=== PATIENT | female | born 1970 | race Caucasian/White ===

== ENCOUNTER 2017-05-12 05:45 | Day surgery (SDC) | payer MEDICARE, OTHER ==
[~2017-05-12] VITALS: Ht 160 cm; Wt 70.8 kg
[~2017-05-12 05:45] MED LIST: ADVIL200 M1 PO; ALBUTEROL SULF8.5 GM INH; CHANTIX1 MG PO; CLONAZEPAM1 MG PO; CLONAZEPAM2 MG PO; CYCLOBENZAPRINE10 MG PO; CYMBALTA60 MG PO; CYPROHEPTADINE H4 MG PO; DEPO-ESTRADIO5 MG/ML IM; HYDROCODON-ACE1 EA11 PO; IBUPROFEN400 MG PO; IBUPROFEN800 MG PO; INDERAL LA120 MG PO; INDERAL LA60 MG PO; MECLIZINE HCL12.5 MG PO; NALBUPHINE; NORCO 5-325 TA1 EACH PO; NORCO 7.5-3251 EACH PO; OXYBUTYNIN CHLOR5 MG; PHENERGAN50 MG RC; PROMETHAZINE HC25 M1 PO; SILVADENE20 GM TOP; SIMVASTATIN20 MG PO; TAMSULOSIN HCL0.4 MG PO; TRAZODONE HCL100 MG PO; VALIUM5 MG PO; VENLAFAXINE H37.5 MG; VENLAFAXINE H37.5 MG PO; VESICARE10 MG PO; VITAMIN D250000 UNIT PO; ZOFRAN ODT4 MG PO
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
== END 2017-05-12 10:25 | disposition home or self-care (01) ==
LOC: OPS 05:45 → DS 05:45 → OPS 06:45 → DS 06:45 → OPS 10:25
PROVIDERS: Urology
PROC: 3E0K8GC Introduction of Other Therapeutic Substance into Genitourinary Tract, Via Natural or Artificial Opening Endoscopic (ICD-10-PCS; principal; 2017-05-12 06:45)
DX: N32.81 Overactive bladder (principal); F32.9 Major depressive disorder, single episode, unspecified; G43.909 Migraine, unspecified, not intractable, without status migrainosus; F17.210 Nicotine dependence, cigarettes, uncomplicated; Z90.710 Acquired absence of both cervix and uterus; Z87.820 Personal history of traumatic brain injury; Z86.718 Personal history of other venous thrombosis and embolism; Z88.2 Allergy status to sulfonamides; Z88.5 Allergy status to narcotic agent; Z88.8 Allergy status to other drugs, medicaments and biological substances; Z98.890 Other specified postprocedural states; Z79.899 Other long term (current) drug therapy
CPT/HCPCS: 00910; J0696; J1100; J2405; J2704; J2765; J3010; J7120

== ENCOUNTER 2017-06-01 13:12 | Emergency (ER) | payer MEDICARE, OTHER ==
[~2017-06-01] VITALS: Ht 160 cm; Wt 70.8 kg
[2017-06-01] MEDS ORDERED: PROPRANOLOL HCL60 MG PO (13:25)
[2017-06-01] MEDS ORDERED: CLONAZEPAM0.5 MG PO (13:25)
[2017-06-01] MEDS ORDERED: NAPROXEN500 MG PO (13:25)
[2017-06-01] MEDS ORDERED: VENLAFAXINE HCL75 MG PO (13:25)
[2017-06-01] MEDS ORDERED: NALBUPHINE IM (13:32)
[2017-06-01] MEDS ORDERED: PROMETHAZINE HC25 M1 PO (15:11)
[2017-06-01] MEDS ORDERED: NORCO 7.5-3251 EACH PO (15:11)
--- NOTE | 2017-06-01 20:26 | EKG ---
[facility] [address] [facility] [place] [address] Signed Normal sinus rhythm Normal ECG No previous ECGs available Confirmed by JUANY FISCHER MD ([id number]) on 06/01/2017 8:26:43 PM Electronically Signed By: JUANY FISCHER MD 06/01/172025 PATIENT NAME: EMMA WEINER Electrocardiogram DATE OF : 66 PHYSICIAN: JUANY FISCHER MD REPORT #: [id number] REPORT IS CONFIDENTIAL AND NOT TO BE RELEASED WITHOUT AUTHORIZATION
== END 2017-06-01 15:45 | disposition home or self-care (01) ==
LOC: ED 13:12
DX: R07.89 Other chest pain (principal); E78.00 Pure hypercholesterolemia, unspecified; Z91.013 Allergy to seafood; Z88.2 Allergy status to sulfonamides; Z88.8 Allergy status to other drugs, medicaments and biological substances; F17.200 Nicotine dependence, unspecified, uncomplicated; Z79.899 Other long term (current) drug therapy; Z88.1 Allergy status to other antibiotic agents; Z88.6 Allergy status to analgesic agent; Z90.710 Acquired absence of both cervix and uterus; Z90.49 Acquired absence of other specified parts of digestive tract; Z79.891 Long term (current) use of opiate analgesic; Z98.890 Other specified postprocedural states
CPT/HCPCS: 71020; 80053; 84484; 85025; 93005; 93010; 96374; 99284; J2550

== ENCOUNTER 2017-06-20 15:59 | Emergency (ER) | payer MEDICARE, OTHER ==
[~2017-06-20] VITALS: Ht 160 cm; Wt 70.8 kg
[~2017-06-20 15:59] MED LIST changes: +CLONAZEPAM0.5 MG PO; +NALBUPHINE IM; +NAPROXEN500 MG PO; +PROPRANOLOL HCL60 MG PO; +VENLAFAXINE HCL75 MG PO
== END 2017-06-20 17:13 | disposition home or self-care (01) ==
LOC: ED 15:59
DX: G43.909 Migraine, unspecified, not intractable, without status migrainosus (principal); Z88.2 Allergy status to sulfonamides; Z91.013 Allergy to seafood; Z88.8 Allergy status to other drugs, medicaments and biological substances; F17.200 Nicotine dependence, unspecified, uncomplicated; E78.00 Pure hypercholesterolemia, unspecified; Z88.1 Allergy status to other antibiotic agents; Z79.899 Other long term (current) drug therapy
CPT/HCPCS: 96372; 99282; J2300; J2550

== ENCOUNTER 2017-08-25 08:40 | Day surgery (SDC) | payer MEDICARE, OTHER ==
[~2017-08-25] VITALS: Ht 160 cm; Wt 70.8 kg
--- NOTE | 2017-08-25 09:57 | NUR ---
U/S IV ACCESS NOTE. AFTER MULTIPLE ATTEMPTS BY OTHER RN'S U/S WAS USED TO EXAMINE ARMS. THE LEFT BASILIC VEIN WAS ACCESSED BUT THE CATHETER WOULD NOT ADVANCE UP. A SECOND ATTEMPT WAS MADE ON A PROXIMAL SECTION OF THE LEFT BASILIC WITH THE SAME RESULTS. ATTENTION WAS THEN TURNED TO THE LEFT BRACHIAL VEIN WHICH WAS ACCESSED ON THE FIRST ATTEMPT AND THE 18G 2.25 IN CATHETER ADVANCED EASILY UP THE LEFT BRACHIAL VEIN. THIS VEIN APPEARED TO BE LARGER THAN 7 FR PER SITE RITProsper U/S. THE PT TOLERATED THIS WELL. CHLORHEXADINE AND HANDWASHING WERE USED PRIOR TO ALL ATTEMPTS AND A WINDOW DRESSING WAS SECURED WITH TAPE AFTER THE STERILE U/S GELL WAS CLEANED OFF.
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
--- NOTE | 2017-08-25 11:15 | NUR ---
08/25/17 1115 Jackie Alvarez 1107 PT ARRIVED IN PACU VERY SLEEPY WITH ORAL AIRWAY IN PLACE. RN HOLDING AIRWAY.
--- NOTE | 2017-08-25 12:09 | NUR ---
PT IS BACK TO DS FROM PACU. NO C/O'S PAIN OR NAUSEA. DRINKING WATER WITHOUT ISSUE. CALL LIGHT WITHIN REACH. NO OTHER C/O'S AT THIS TIME. WILL REASSESS WITHIN THE HOUR.
--- NOTE | 2017-08-25 12:23 | NUR ---
ALISSA 1215: PT HELPED UP OOB TO THE BATHROOM WITH STANDBY ASSIST. SHE REQUESTS A GRILLED CHEESE SANDWICH WITH TOMATO SOUP.
[2017-08-25] MEDS ORDERED: CIPRO500 MG PO (12:29)
[2017-08-25] MEDS ORDERED: NORCO 7.5-3251 EACH PO (12:29)
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
== END 2017-08-25 13:10 | disposition home or self-care (01) ==
LOC: DS 08:40
PROVIDERS: Urology
PROC: 3E0K8GC Introduction of Other Therapeutic Substance into Genitourinary Tract, Via Natural or Artificial Opening Endoscopic (ICD-10-PCS; principal; 2017-08-25 10:30)
DX: N32.81 Overactive bladder (principal); N31.9 Neuromuscular dysfunction of bladder, unspecified; G43.909 Migraine, unspecified, not intractable, without status migrainosus; J30.2 Other seasonal allergic rhinitis; F32.9 Major depressive disorder, single episode, unspecified; F17.210 Nicotine dependence, cigarettes, uncomplicated; Z90.710 Acquired absence of both cervix and uterus; Z79.899 Other long term (current) drug therapy; Z86.718 Personal history of other venous thrombosis and embolism; Z98.890 Other specified postprocedural states; Z88.1 Allergy status to other antibiotic agents; Z88.2 Allergy status to sulfonamides; Z88.8 Allergy status to other drugs, medicaments and biological substances
CPT/HCPCS: 00910; 84295; J0696; J1100; J1885; J2250; J2405; J2704; J2765; J3010; J7030; J7120

== ENCOUNTER 2017-09-07 13:08 | Emergency (ER) | payer MEDICARE, OTHER ==
[~2017-09-07] VITALS: Ht 160 cm; Wt 70.8 kg
[~2017-09-07 13:08] MED LIST changes: +CIPRO500 MG PO
== END 2017-09-07 19:13 | disposition home or self-care (01) ==
LOC: ED 13:08
DX: G43.909 Migraine, unspecified, not intractable, without status migrainosus (principal); F17.200 Nicotine dependence, unspecified, uncomplicated; Z91.013 Allergy to seafood; Z88.2 Allergy status to sulfonamides; Z88.8 Allergy status to other drugs, medicaments and biological substances; Z88.1 Allergy status to other antibiotic agents; Z88.6 Allergy status to analgesic agent; Z79.899 Other long term (current) drug therapy
CPT/HCPCS: 96372; 99282; J2300; J2550

== ENCOUNTER 2017-11-17 06:55 | Day surgery (SDC) | payer MEDICARE, OTHER ==
[~2017-11-17] VITALS: Ht 160 cm; Wt 70.8 kg
--- NOTE | 2017-11-17 09:44 | NUR ---
scopalamine patch pt instructed to wash hands if she touches patch.
--- NOTE | 2017-11-17 09:57 | NUR ---
PT RESTING IN BED, ALERT AND ORIENTED. SHE SEEMED AT EASE WITH SURGERY TODAY, AND HAD FEW QUESTIONS. PT MENTIONED HER PLATT CAME AND PRAYED FOR HER AND IT SEEMED TO SET A VERY POSITIVE TONE FOR TODAY. WILL FOLLOW NEEDED
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
== END 2017-11-17 11:39 | disposition home or self-care (01) ==
LOC: OPS 06:55 → DS 06:55 → OPS 08:15 → DS 08:15 → OPS 11:39
PROVIDERS: Urology
PROC: 3E0K8GC Introduction of Other Therapeutic Substance into Genitourinary Tract, Via Natural or Artificial Opening Endoscopic (ICD-10-PCS; principal; 2017-11-17 08:15)
DX: N32.81 Overactive bladder (principal); S39.93XA Unspecified injury of pelvis, initial encounter; N31.9 Neuromuscular dysfunction of bladder, unspecified; F32.9 Major depressive disorder, single episode, unspecified; J30.2 Other seasonal allergic rhinitis; F17.210 Nicotine dependence, cigarettes, uncomplicated; Z88.2 Allergy status to sulfonamides; Z79.899 Other long term (current) drug therapy; Z87.820 Personal history of traumatic brain injury; Z88.1 Allergy status to other antibiotic agents; Z88.8 Allergy status to other drugs, medicaments and biological substances
CPT/HCPCS: 00910; J0585; J0690; J0696; J1100; J2405; J2704; J7120

== ENCOUNTER 2018-04-20 06:50 | Day surgery (SDC) | payer MEDICARE, OTHER ==
[~2018-04-20] VITALS: Ht 160 cm; Wt 71.2 kg
[2018-04-20] MEDS ORDERED: PERCOCET 5-3251 EACH PO (10:08)
--- NOTE | 2018-04-20 10:12 | NUR ---
04/20/18 1012 Jackie Alvarez 0959 PT ARRIVED IN PACU WIDE AWAKE TALKING TO STAFF. NO C/O'S. 0950 PT SIPPING ON WATER. 1012 PT TALKING TO BOYFRIEND ON CELL PHONE.
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
== END 2018-04-20 10:25 | disposition home or self-care (01) ==
LOC: OPS 06:50 → DS 06:50 → OPS 08:30
PROVIDERS: Urology
PROC: 3E0K8GC Introduction of Other Therapeutic Substance into Genitourinary Tract, Via Natural or Artificial Opening Endoscopic (ICD-10-PCS; principal; 2018-04-20 08:30)
DX: N32.81 Overactive bladder (principal); F32.9 Major depressive disorder, single episode, unspecified; G43.909 Migraine, unspecified, not intractable, without status migrainosus; F17.210 Nicotine dependence, cigarettes, uncomplicated; Z88.2 Allergy status to sulfonamides; Z88.1 Allergy status to other antibiotic agents; Z88.8 Allergy status to other drugs, medicaments and biological substances; Z79.899 Other long term (current) drug therapy; Z87.820 Personal history of traumatic brain injury
CPT/HCPCS: 81001; J0696; J1100; J2250; J2405; J3010; J7120

== ENCOUNTER 2018-11-16 08:50 | Day surgery (SDC) | payer MEDICARE, OTHER ==
--- NOTE | 2018-11-13 15:43 | NUR ---
SPOKE WITH DR CALDERA ABOUT POSITIVE URINE ANALYSIS WITH PENDING CULTURE. TELEPHONE ORDER FOR CIPRO 500MG BID FOR 7 DAYS CALLED TO [facility]. PATIENT AWARE SHE WILL NEED TO START ABX TODAY IN ORDER TO PROCEED WITH SURGERY ON FRIDAY.
[~2018-11-16] VITALS: Ht 160 cm; Wt 75.3 kg
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
[~2018-11-16 08:50] MED LIST changes: +PERCOCET 5-3251 EACH PO; +SINGULAIR10 MG PO
[2018-11-16] MEDS ORDERED: CIPRO500 MG PO (09:13)
--- NOTE | 2018-11-16 10:51 | NUR ---
11/16/18 1051 Jackie Alvarez 1036 PT ARRIVED IN PACU ASLEEP WITH ORAL AIRWAY IN PLACE. CHIN LIFT DOWN BY RN TO KEEP AIRWAY OPEN. 1044 PT AWAKE. ORAL AIRWAY REMOVED. 1045 PT SITTING UP IN BED TALKING TO STAFF. OXYGEN REMOVED. 1050 SIPPING ON WATER.
== END 2018-11-16 11:10 | disposition home or self-care (01) ==
LOC: OPS 08:50 → DS 08:50 → OPS 10:15 → DS 10:15 → OPS 11:10
PROVIDERS: Urology
PROC: 3E0K8GC Introduction of Other Therapeutic Substance into Genitourinary Tract, Via Natural or Artificial Opening Endoscopic (ICD-10-PCS; principal; 2018-11-16 10:15)
DX: N31.9 Neuromuscular dysfunction of bladder, unspecified (principal); N32.81 Overactive bladder; F17.210 Nicotine dependence, cigarettes, uncomplicated; I10 Essential (primary) hypertension; E78.5 Hyperlipidemia, unspecified; D64.9 Anemia, unspecified; G81.91 Hemiplegia, unspecified affecting right dominant side; G43.909 Migraine, unspecified, not intractable, without status migrainosus; Z86.718 Personal history of other venous thrombosis and embolism; Z79.899 Other long term (current) drug therapy; Z88.2 Allergy status to sulfonamides; Z88.1 Allergy status to other antibiotic agents; Z88.8 Allergy status to other drugs, medicaments and biological substances
CPT/HCPCS: 00910; 81001; 93005; 93010; J0585; J0696; J2250; J2405; J2704; J3010; J7120

== ENCOUNTER 2019-05-03 08:25 | Day surgery (SDC) | payer MEDICARE, OTHER ==
[~2019-05-03] VITALS: Ht 160 cm; Wt 76.7 kg
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
--- NOTE | 2019-05-03 10:21 | NUR ---
05/03/19 1021 Nany Dumont 1009 PT ARRIVED AND IS TRYING TO GET OUT OF BED, PT MOVING ARMS AND RN TRYS TO REORIENTE PT TO PACU. 10L VIA MASK IS PLACE, RESP EVEN AND UNLABORED. PT DENIES PAIN AND NAUSEA. 1012 PT ALSEEP OFF AND ON, O2 REMOVED. PT ENOCURAGED TO DEEP BRAETHE. PT CONTINUES TO DENY PAIN AND NAUSEA. PT AGAIN TRYS TO GET OUT OF BED. PT REOREITNED TO PACU AND PT BACK TO SLEEP. 1020 PT REPORTS BEING THRISTY AND IS AGAIN REORIENTED TO PACU. VSS. PT RESTING IN BED.
--- NOTE | 2019-05-03 10:41 | NUR ---
PT ARRIVES TO DS RM 4 FROM PACU AWAKE WITH EVEN AND UNLABORED RESP. PT SATS ABOVE 94% ON RA, CONT PULSE OXIMETER LEFT IN PLACE. PT DENIES ANY NAUSEA OR PAIN. PT DROWSY WITH NO VERBAL STIMULATION, BEGINS TO LIGHTLY SNORE. CALL LIGHT AT PT LEFT SIDE.
--- NOTE | 2019-05-03 12:06 | NUR ---
[id number]: PT RESTING WITH EYES CLOSED, RESP EVEN AND UNLABORED ON ENTRANCE TO PT ROOM. PT WAKES WITH VERBAL STIMULATION. PT DENIES ANY PAIN OR NAUSEA AND STATES URGE TO VOID. PT SOILS BED AND BEDSIDE COMMODE PROVIDED. BEDDING CHANGED WITH NEW LINENS AND PT GIVEN CLEAN GOWN. PT VOIDS QS INTO COMMODE. WARM BLANKETS AND PUDDING PROVIDED. CAREGIVER, GIBSON IN PT ROOM AT THIS TIME. PT
--- NOTE | 2019-05-03 12:54 | NUR ---
[id number]: PT DRESSES SELF WITH ASSISTANCE FROM CAREGIVER. DC INSTRUCTIONS GIVEN IN PRESENCE OF CAREGIVER AND PT, NO FURTHER QUESTIONS ASKED. PT DC'S VIA WC TO MAIN ENTRANCE OF HOSPITAL WITH CAREGIVER TO HOME.
--- NOTE | 2019-05-03 12:57 | NUR ---
[id number]: PT LEFT CANE IN PT ROOM. CAREGIVER CALLED AND CANE GIVEN TO SWITCH BOARD TO RETURN.
== END 2019-05-03 12:20 | disposition home or self-care (01) ==
LOC: DS 08:25
PROVIDERS: Urology
PROC: 3E0K8GC Introduction of Other Therapeutic Substance into Genitourinary Tract, Via Natural or Artificial Opening Endoscopic (ICD-10-PCS; principal; 2019-05-03 10:30)
DX: N32.81 Overactive bladder (principal); K21.9 Gastro-esophageal reflux disease without esophagitis; G81.91 Hemiplegia, unspecified affecting right dominant side; F32.9 Major depressive disorder, single episode, unspecified; Z87.891 Personal history of nicotine dependence; F12.90 Cannabis use, unspecified, uncomplicated; D64.9 Anemia, unspecified; R42 Dizziness and giddiness; Z88.2 Allergy status to sulfonamides; Z88.6 Allergy status to analgesic agent; Z88.1 Allergy status to other antibiotic agents; Z88.8 Allergy status to other drugs, medicaments and biological substances; Z79.899 Other long term (current) drug therapy
CPT/HCPCS: J0585; J0696; J1100; J1885; J2250; J2405; J2704; J2765; J3010; J7120

== ENCOUNTER 2020-01-24 06:50 | Day surgery (SDC) | payer MEDICARE, OTHER ==
[~2020-01-24] VITALS: Ht 160 cm; Wt 73.5 kg
[~2020-01-24 06:50] MED LIST changes: +24HR ALLERGY REL5 MG PO; +ASPIR 8181 MG PO; +EFFEXOR XR150 MG PO; +METOPROLOL SUCC50 MG PO
--- NOTE | 2020-01-24 09:59 | NUR ---
Visited PT before her proceedure to let her know that we care about our PTs and I would be praying for her. Her Elders had visited her earlier which she appreciated. She is looking forward to having this procedure because it was put off due to Covid. We had a nice visit and she expressed much gratitude for my visit.
--- NOTE | 2020-01-24 11:19 | NUR ---
01/24/20 1119 Bart Pulido REPOSITIONED PT IN BED AND GAVE SIPS OF WATER WITHOUT PROBLEMS. PT CONTINUES TO DENY PAIN OR NAUSEA. ORIENTED TO TIME AND SITUATION
--- NOTE | 2020-01-24 11:27 | NUR ---
PT IS BACK TO FROM PACU. SHE IS AWAKE AND ORIENTED. SHE HAS HER CALL LIGHT WITHIN REACH. WATER ON BEDSIDE TABLE. NO C/O'S PAIN. NO ADDITIONAL NEEDS AT THIS TIME. PT'S RIDE WILL NOT BE HERE UNTIL 1400
--- NOTE | 2020-01-24 12:49 | NUR ---
ENCOURAGED PATIENT TO GET UP AND USE BATHROOM. PATIENT STATED " I DON'T WANT TO, I WOULD LIKE TO SLEEP LONGER" PATIEN REPORTS FEELING COLD, PROVIDED WARM BLANKETS AND MADE PLAN TO LET PATIENT REST A LITTLE LONGER THEN GET UP TO BATHROOM, PATIENT VERBALIZED OKAY. RATES PAIN 0/10 ON PAIN SCALE. NO OTHER NEEDS AT THIS TIME. PROVIDED APPLESAUCE AND CRACKERS.
--- NOTE | 2020-01-24 13:51 | NUR ---
DISCUSSING DISCHARGE EDUCATION WITH PATIENT, WHEN PATIENT ASKS " WHAT ABOUT PERCOCET? I ALWAYS GET PERCOCET SENT HOME WTH ME". PATIENT THEN RATED PAIN 5/10 AND STARTED TO GRIMACE. PATIENT STATED " THE CRAMPING ALWAYS GETS TO BOTHERING ME". ADMINISTERED PAIN MEDICATION PER MAR. PROVIDED CRACKERS, REPOSITIONED PATIENT UP IN BED. CALL TO DR CALDERA TO COMMUNICATE PATIENT REQUEST FOR PERCOCET, LEFT MESSAGE WITH NURSE RALF JONES.
--- NOTE | 2020-01-24 14:00 | NUR ---
PATIENT INCONTINENT IN BED, STOOD UP IN ROOM STATES " I AM GOING TO PEE MYSELF IF I TRY TO WALK TO THE BATHROOM". PROVIDED BSC, PATIENT TRANSFERED WELL STEADY ON FEET. VOIDED [address] CALDERA TO FLOOR TO WRITE SCRIPT FOR PAIN MEDICATION. PROVIDED PATIENT AGAIN WITH DISCHARGE INSTRUCTION, PATIENT VERBALIZED UNDERSTANDING.
--- NOTE | 2020-01-24 14:05 | NUR ---
PATIENT SIGNIFICANT OTHER TO DAY SURGERY, PATIENT READY TO DISCHARGE HOME. PROVIDED WHEELCHAIR RIDE TO FRONT, PATIENT TRANSFERED INTO POV. NO OTHER NEEDS.
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
== END 2020-01-24 14:05 | disposition home or self-care (01) ==
LOC: OPS 06:50 → DS 06:50 → OPS 09:15
PROVIDERS: Urology
PROC: 3E0K8GC Introduction of Other Therapeutic Substance into Genitourinary Tract, Via Natural or Artificial Opening Endoscopic (ICD-10-PCS; principal; 2020-01-24 09:15)
DX: N32.81 Overactive bladder (principal); F17.200 Nicotine dependence, unspecified, uncomplicated; Z79.899 Other long term (current) drug therapy; Z79.82 Long term (current) use of aspirin; Z88.2 Allergy status to sulfonamides; Z88.8 Allergy status to other drugs, medicaments and biological substances; Z88.5 Allergy status to narcotic agent; Z88.1 Allergy status to other antibiotic agents
CPT/HCPCS: 00910; J0585; J0696; J1100; J2001; J2405; J2704; J3010; J7121

== ENCOUNTER 2020-07-03 06:50 | Day surgery (SDC) | payer MEDICARE, OTHER ==
[~2020-07-03] VITALS: Ht 160 cm; Wt 71.4 kg
--- NOTE | ~2020-07-03 | OR ---
[facility] [address] [place], [place] [address] Draft DATE OF OPERATION: 07/03/2020 SURGEON: Phil Caldera MD PREOPERATIVE DIAGNOSES: 1. Severe overactive bladder. 2. Neurogenic bladder. POSTOPERATIVE DIAGNOSES: 1. Severe overactive bladder. 2. Neurogenic bladder. PROCEDURES: Diagnostic cystoscopy with Botox bladder injection of 200 units. ANESTHESIA: General. ESTIMATED BLOOD LOSS: Minimal. COMPLICATIONS: None. SPECIMENS: None. DRAINS: None. 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 Her previous injury has resulted in severe overactive bladder, for which she currently undergoes Botox bladder injection therapy approximately every nine months or so. On her last office visit, she had pointed out that her response to the injection had not been the same as in previous years. She requests at that time a possible increase in her Botox dose and I agreed. She was informed of the risk of the higher risk of urinary retention with higher doses of botulinum toxin, and she has agreed to proceed. PATIENT NAME: KELSI WEINER OPERATIVE REPORT DATE OF : 66 REPORT #: [id number] PHYSICIAN: PHIL CALDERA MD PCP: NO PRIMARY CARE PHYSICIAN REPORT IS CONFIDENTIAL AND NOT TO BE RELEASED WITHOUT AUTHORIZATION [facility] [address] [place], [place] [address] Draft FINDINGS: 1. On cystoscopy, there was no evidence of any suspicious masses, lesions, or stones. Bilateral ureteral orifices are in their normal anatomic location. There is diffuse grade 3-4 bladder wall trabeculation noted. 2. A total of 200 units of botulinum toxin was injected into the patient's bladder, the 30 mL of reconstituted botulinum toxin solution, along with 2 mL of flush thereafter. DESCRIPTION OF PROCEDURE: After informed consent was obtained, the patient was taken back to the operating room. She was transferred from the [facility] to the operating room table, where general anesthesia was induced. She was placed in the dorsal lithotomy position and genitalia were prepped and draped in standard sterile fashion. Using a 30-degree lens on a 22.5-New Zealander introducer, rigid cystoscope was inserted through the urethra into her bladder under direct visualization. Panendoscopic views of bladder were then obtained. Please see above findings. I then advanced the [employer] needle once I was safely within the patient's bladder. The needle was advanced to 3 mm length, and then a total of 30 mL of reconstituted both botulinum toxin was injected into the patient's bladder in 1 mL aliquots, along with 2 mL of flush at the end of the procedure. The patient tolerated the procedure well without any complication. There was no significant bleeding associated with the injections. At the end of the procedure, the patient's bladder was then drained and the cystoscope was removed. Once she was awoken from anesthesia, she was taken to the postanesthesia care unit care unit in stable condition. DISPOSITION: The patient will be discharged to home later today once she awakes from general anesthetic. She will be sent home with Percocet 10/325, dispense #20 as needed for pain, along with Cipro 500 mg p.o. b.i.d. for a total of 5 days. She will be scheduled return to clinic on February 8th with a UA check for her first postoperative evaluation. MD ELSA Hatch/CHARAN /[id number] Copies: PATIENT NAME: REGINEKELSI OPERATIVE REPORT DATE OF : 66 REPORT #: [id number] PHYSICIAN: PHIL CALDERA MD PCP: NO PRIMARY CARE PHYSICIAN REPORT IS CONFIDENTIAL AND NOT TO BE RELEASED WITHOUT AUTHORIZATION [facility] [address] [place] [address] Draft ~ PATIENT NAME: SOLEDAD WEINERTHO BURNETT OPERATIVE REPORT DATE OF : 66 REPORT #: [id number] PHYSICIAN: PHIL CALDERA MD PCP: NO PRIMARY CARE PHYSICIAN REPORT IS CONFIDENTIAL AND NOT TO BE RELEASED WITHOUT AUTHORIZATION
[~2020-07-03 06:50] MED LIST changes: +NAPROXEN375 M1 PO
== END 2020-07-03 11:40 | disposition home or self-care (01) ==
LOC: OPS 06:50 → DS 06:50 → OPS 09:00
PROVIDERS: ATTEND Urology
PROC: 3E0K8GC Introduction of Other Therapeutic Substance into Genitourinary Tract, Via Natural or Artificial Opening Endoscopic (ICD-10-PCS; principal; 2020-07-03 09:00)
DX: N32.81 Overactive bladder (principal); N31.9 Neuromuscular dysfunction of bladder, unspecified; I10 Essential (primary) hypertension; K21.9 Gastro-esophageal reflux disease without esophagitis; J30.2 Other seasonal allergic rhinitis; G43.909 Migraine, unspecified, not intractable, without status migrainosus; M19.90 Unspecified osteoarthritis, unspecified site; F32.9 Major depressive disorder, single episode, unspecified; F17.210 Nicotine dependence, cigarettes, uncomplicated; Z79.1 Long term (current) use of non-steroidal anti-inflammatories (NSAID); Z79.899 Other long term (current) drug therapy; Z79.82 Long term (current) use of aspirin; Z88.1 Allergy status to other antibiotic agents; Z86.718 Personal history of other venous thrombosis and embolism; Z91.013 Allergy to seafood; Z88.8 Allergy status to other drugs, medicaments and biological substances
CPT/HCPCS: J0585; J0690; J1100; J1885; J2001; J2250; J2405; J2704; J3010; J7121

== ENCOUNTER 2020-12-11 07:17 | Day surgery (SDC) | payer MEDICARE, OTHER ==
--- NOTE | 2020-11-29 13:46 | NUR ---
PT WILL GO TO [facility] NEXT WEEK 5-17-21 SOMETIME TO OBTAIN LABS PER PATIENT. PATIENT WAS TOLD BY DR CALDERA OFFICE TO HAVE LABS DONE EARLY. PT WILL COME TO [facility] TO OBTAIN COVID-SCREENING.
[~2020-12-11] VITALS: Ht 160 cm; Wt 73.0 kg
[~2020-12-11 07:17] MED LIST changes: +CLARITIN10 M2 PO; +CLONIDINE HCL0.1 MG PO; +FLONASE ALLERG9.9 ML
--- NOTE | 2020-12-11 12:27 | NUR ---
12/11/20 1227 Jackie Alvarez 1210 PT ARRIVED IN PACU AWAKE ASKING FOR WATER. REMINDED PT JUST GOT OUT OF SURGERY AND WILL HAVE TO WAIT ALITTLE WHILE. 1225 RESTING. REU.
--- NOTE | 2020-12-11 12:45 | NUR ---
PT IS BACK TO DS FROM PACU. SHE IS TOLERATING SIPS OF WATER. CALL LIGHT WITHIN REACH. NO C/O'S PAIN. NO ADDITIONAL NEEDS AT THIS TIME. SONALIE ALREADY CALLED AND EDUCATED THAT SHE WILL BE READY TO GO IN ROUGHLY AN HOUR.
--- NOTE | 2020-12-11 13:00 | NUR ---
PT WOULD LIKE SOMETHING TO SNACK ON AND A PAIN PILL. SHE WOULD ALSO LIKE TO GET UP OOB TO USE THE RESTROOM. SHE IS ASSISTED UP OOB WITH STANDBY ASSIST. SHE USES CANE TO AMBULATE TO THE RESTROOM. SHE IS ABLE TO VOID 200MLS OF PALE YELLOW URINE. SHE IS ABLE TO AMBULATE HERSELF BACK TO HER ROOM.
--- NOTE | 2020-12-11 13:41 | NUR ---
PATIENT SITTING UP IN BED. STATES NO PAIN OR NAUSEA AT THIS TIME. PATIENT STATES RIDE WILL BE HERE IN 30 MINUTES.
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
== END 2020-12-11 14:06 | disposition home or self-care (01) ==
LOC: DS 07:17 → OPS 07:17 → DS 10:30 → OPS 14:06
PROVIDERS: ATTEND Urology
PROC: 3E0K8GC Introduction of Other Therapeutic Substance into Genitourinary Tract, Via Natural or Artificial Opening Endoscopic (ICD-10-PCS; principal; 2020-12-11 10:30)
DX: N32.81 Overactive bladder (principal); N31.9 Neuromuscular dysfunction of bladder, unspecified; N39.41 Urge incontinence; R35.0 Frequency of micturition; N32.89 Other specified disorders of bladder; G43.909 Migraine, unspecified, not intractable, without status migrainosus; F17.210 Nicotine dependence, cigarettes, uncomplicated; F32.9 Major depressive disorder, single episode, unspecified; F41.0 Panic disorder [episodic paroxysmal anxiety]; F40.240 Claustrophobia; M19.90 Unspecified osteoarthritis, unspecified site; G81.91 Hemiplegia, unspecified affecting right dominant side; K21.9 Gastro-esophageal reflux disease without esophagitis; G89.29 Other chronic pain; F12.90 Cannabis use, unspecified, uncomplicated; I10 Essential (primary) hypertension; R94.31 Abnormal electrocardiogram [ECG] [EKG]; Z79.82 Long term (current) use of aspirin; Z86.718 Personal history of other venous thrombosis and embolism; Z88.2 Allergy status to sulfonamides; Z88.8 Allergy status to other drugs, medicaments and biological substances; Z88.6 Allergy status to analgesic agent; Z88.1 Allergy status to other antibiotic agents; Z91.013 Allergy to seafood; Z87.828 Personal history of other (healed) physical injury and trauma; Z87.820 Personal history of traumatic brain injury
CPT/HCPCS: 00910; J0585; J0690; J1100; J1885; J2250; J2405; J2704; J2765; J3010; J7121

== ENCOUNTER 2022-01-28 08:45 | Day surgery (SDC) | payer MEDICARE, OTHER ==
[~2022-01-28] VITALS: Ht 160 cm; Wt 79.5 kg
[~2022-01-28 08:45] MED LIST changes: +BACLOFEN20 MG PO; +LYRICA25 MG PO; +MACRODANTIN25 MG PO
[2022-01-28] MEDS ORDERED: CLARITIN5 MG PO (09:02)
[2022-01-28] MEDS ORDERED: OMEPRAZOLE10 MG PO (09:02)
--- NOTE | 2022-01-28 12:49 | NUR ---
01/28/22 1249 Jackie Alvarez 1218 PT ARRIVED IN PACU SLEEPY. 1230 PT AWAKENS TO VERBAL STIMULI. DENIES PAIN AT THIS TIME. 1245 SNORING. REU.
--- NOTE | 2022-01-28 13:55 | NUR ---
1300 PATIENT BACK TO DAY SURGERY, PATIENT IS DROWSY. BREATHING EQUAL AND UNLABORED. DENIES ANY PAIN OR NAUSEA AT THIS TIME. NO SIGNS OF DRAINAGE AT SURGICAL SITE. CALL LIGHT WITHIN REACH NO FUTHER NEEDS.
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
== END 2022-01-28 14:15 | disposition home or self-care (01) ==
LOC: DS 08:45
PROVIDERS: ATTEND Urology
PROC: 3E0K8GC Introduction of Other Therapeutic Substance into Genitourinary Tract, Via Natural or Artificial Opening Endoscopic (ICD-10-PCS; principal; 2022-01-28 12:55)
DX: N32.81 Overactive bladder (principal); N31.9 Neuromuscular dysfunction of bladder, unspecified; F17.210 Nicotine dependence, cigarettes, uncomplicated; Z88.2 Allergy status to sulfonamides; Z88.5 Allergy status to narcotic agent; Z88.8 Allergy status to other drugs, medicaments and biological substances; Z88.1 Allergy status to other antibiotic agents
CPT/HCPCS: J0585; J0690; J1100; J1885; J2250; J2405; J2704; J2765; J3010; J7121

== ENCOUNTER 2022-06-03 08:29 | Day surgery (SDC) | payer MEDICARE, OTHER ==
[~2022-06-03] VITALS: Ht 160 cm; Wt 80.0 kg
[~2022-06-03 08:29] MED LIST changes: +CLARITIN5 MG PO; +OMEPRAZOLE10 MG PO; +REMERON15 M1 PO
[2022-06-03] MEDS ORDERED: MACROBID 100 M100 MG PO (11:03)
--- NOTE | 2022-06-04 10:49 | OR ---
[address] [address] Signed DATE OF OPERATION: 06/03/2022 SURGEON: Phil Caldera MD PREOPERATIVE DIAGNOSES: 1. Overactive bladder. 2. Neurogenic bladder. POSTOPERATIVE DIAGNOSES: 1. Overactive bladder. 2. Neurogenic bladder. PROCEDURES: 1. Diagnostic cystoscopy. 2. Botox bladder injection, 200 units. ANESTHESIA: General. ESTIMATED BLOOD LOSS: Minimal. COMPLICATIONS: None. SPECIMENS: None. DRAINS: None. INDICATIONS FOR PROCEDURE: Ms. Weiner is a very pleasant 51-year-old female with a history of bladder trauma resulting in neurogenic bladder. She routinely undergoes Botox bladder injection around every 7-8 months for management of her severe overactive bladder symptoms. She presents again today to undergo another routine injection of 200 units of botulinum toxin. OPERATIVE FINDINGS: 1. On cystoscopy, there was no evidence of any suspicious masses, lesions, or stones. Bilateral ureteral orifices are in their normal anatomic location and effluxing clear Electronically Signed By: PHIL CALDERA MD 06/04/22 1049 PATIENT NAME: EMMA WEINER OPERATIVE REPORT DATE OF : 66 REPORT #: [id number] PHYSICIAN: PHIL CALDERA MD PCP: LATISHA MAHAN DO REPORT IS CONFIDENTIAL AND NOT TO BE RELEASED WITHOUT AUTHORIZATION [address] [address] Signed urine. 2. A total of 200 units of botulinum toxin was injected into the patient's bladder today via 30 mL of reconstituted Botox solution, given in 1 mL aliquots. An additional 2 mL was injected at the end of the procedure to utilize any residual Botox present within the injection needle. DESCRIPTION OF PROCEDURE: After informed consent was obtained, the patient was taken back to the operating room. She was transferred from the [facility] to the operating room table, where general anesthesia was induced. She was placed in the dorsal lithotomy position, and her genitalia prepped and draped in standard sterile fashion. Using a 30-degree lens on a 22.5-Urdu introducer, rigid cystoscope was inserted through her urethra and into her bladder under direct visualization. The patient's bladder was drained of all urine and was irrigated a couple of times to remove any remaining debris from the bladder. I then advanced the [employer] needle and protracted the needle 3 mm once I was in the bladder. I then injected 1 mL aliquots of reconstituted Botox solution (200 units). I evenly spread the injections throughout the bladder, avoiding the dome and trigone areas of the bladder. A total of 32 injections were performed. This was performed without difficulty. At the end of the procedure, there were a couple of areas of oozing blood from prior injections. This was irrigated with a Candy syringe, and I did not appreciate any persistent hemorrhage from these areas. Once the entire 32 mL was injected, the needle was then retracted and then removed from the patient's bladder. The patient's bladder was irrigated a couple of times using cystoscope and then was drained. The procedure was then terminated. The patient tolerated the procedure well without any complication. She will now be transferred to the postanesthesia care unit in stable condition. DISPOSITION: The patient will be discharged to home today once she awakes from general anesthesia. She has been instructed to continue her current dose of Macrobid 100 mg p.o. b.i.d. for the next couple of days, then she will return back to her prophylactic dose of 100 mg p.o. q.h.s. for the next month. She will return to clinic to see me in 3 months with a postvoid residual. Phil Caldera MD AR/MODL /[id number] Electronically Signed By: PHIL CALDERA MD 06/04/22 1049 PATIENT NAME: EMMA WEINER OPERATIVE REPORT DATE OF : 66 REPORT #: [id number] PHYSICIAN: PHIL CALDERA MD PCP: LATISHA MAHAN DO REPORT IS CONFIDENTIAL AND NOT TO BE RELEASED WITHOUT AUTHORIZATION [facility] [address] [place] [address] Signed Copies: ~ Electronically Signed By: PHIL CALDERA MD 06/04/22 1049 PATIENT NAME: EMMA WEINER OPERATIVE REPORT DATE OF : 66 REPORT #: [id number] PHYSICIAN: PHIL CALDERA MD PCP: LATISHA MAHAN DO REPORT IS CONFIDENTIAL AND NOT TO BE RELEASED WITHOUT AUTHORIZATION
== END 2022-06-03 15:50 | disposition home or self-care (01) ==
LOC: DS 08:29
PROVIDERS: ATTEND Urology
PROC: 3E0K8GC Introduction of Other Therapeutic Substance into Genitourinary Tract, Via Natural or Artificial Opening Endoscopic (ICD-10-PCS; principal; 2022-06-03 10:45)
DX: N32.81 Overactive bladder (principal); N31.9 Neuromuscular dysfunction of bladder, unspecified; F17.210 Nicotine dependence, cigarettes, uncomplicated
CPT/HCPCS: J0585; J0690; J1100; J1885; J2001; J2250; J2405; J2704; J3010; J7121

== ENCOUNTER 2022-12-30 06:58 | Day surgery (SDC) | payer MEDICARE, OTHER ==
[~2022-12-30] VITALS: Ht 160 cm; Wt 78.2 kg
[~2022-12-30 06:58] MED LIST changes: +MACROBID 100 M100 MG PO
[2022-12-30 07:23] VITALS: BP 92/72
--- NOTE | 2022-12-30 11:18 | NUR ---
12/30/22 1118 Jackie Alvarez 1103 PT ARRIVED IN PACU NON RESPONSIVE TO NOXIOUS STIMULI WITH OPA IN PLACE. 1115 NO CHANGE.
[2022-12-30 11:45] VITALS: BP 127/81
--- NOTE | 2022-12-30 12:15 | NUR ---
1145: PT RETURNS TO UNIT VIA STRETCHER FROM PACU. AWAKE AND ALERT ON ARRIVAL. VSS, RESP EVEN AND UNLABORED. PT DENIES PAIN AND NAUSEA. REPORTS URGE TO VOID. IV CONVERTED TO SL AND SCDS REMOVED. PT DANGLES AT THE BEDSIDE AND SHIRLEY WELL. DENIES DIZZINESS AND SOB. AMBULATES TO BR WITH CANE ASSIST AND STANDBY FROM THIS RN. STEADY GAIT. SUCCESSFUL FIRST POSTOP VOID, 175MLS. NO BLOOD OR BLOOD CLOTS NOTED IN URINE. PT RETURNS TO STRETCHER. ICE WATER, CRACKERS AND WARM BLANKETS PROVIDED. POC DISCUSSED AND PT AGREEABLE AT THIS TIME. NO FURTHER NEEDS, CALL LIGHT WITHIN REACH
[2022-12-30 12:49] VITALS: BP 118/64
--- NOTE | 2022-12-30 12:51 | NUR ---
1245: PT AWAKE AND ALERT WATCHING TV IN STRETCHER. VSS, RESP EVEN AND UNLABORED. DENIES PAIN AND NAUSEA. SHIRLEY PO INTAKE WELL. REPORTS READINESS FOR DC. SL REMOVED WITH CATH TIP INTACT AND PRESSURE APPLIED TO SITE, WNL. TO DRESS INDEPENDENTLY. CALL LIGHT WITHIN REACH
--- NOTE | 2022-12-30 13:16 | NUR ---
1305: DC INSTRUCTIONS PROVIDED AND DISCUSSED ORDERED. PT VOICES UNDERSTANDING AND DENIESQUESTIONS AND CONCERNS AT THIS TIME. WHEELED OFF OF UNIT BY THIS RN. TRANSFERS INTO VEHICLE INDEPENDENTLY AND APPROPRIATELY. NO PHYSICAL S/S OF DISTRESS
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
--- NOTE | 2022-12-31 19:17 | EKG ---
[facility] [address] [facility] [place], [place] [address] Signed Normal sinus rhythm Normal ECG When compared with ECG of 23-JAN-2022 10:33, No significant change was found Confirmed by ANISA RHODES MD ([id number]) on 12/31/2022 7:17:50 PM Electronically Signed By: ANISA RHODES 12/31/221916 PATIENT NAME: EMMA WEINER ELX Electrocardiogram DATE OF : 66 PHYSICIAN: ANISA RHODES REPORT #: [id number] REPORT IS CONFIDENTIAL AND NOT TO BE RELEASED WITHOUT AUTHORIZATION
== END 2022-12-30 13:05 | disposition home or self-care (01) ==
LOC: OPS 06:58 → DS 06:58 → OPS 07:30
PROVIDERS: ATTEND Urology
PROC: 0TJB8ZZ Inspection of Bladder, Via Natural or Artificial Opening Endoscopic (ICD-10-PCS; 2022-12-30)
PROC: 3E0K8GC Introduction of Other Therapeutic Substance into Genitourinary Tract, Via Natural or Artificial Opening Endoscopic (ICD-10-PCS; principal; 2022-12-30 10:20)
DX: N32.81 Overactive bladder (principal); N31.9 Neuromuscular dysfunction of bladder, unspecified; N39.0 Urinary tract infection, site not specified; Z88.6 Allergy status to analgesic agent; Z88.1 Allergy status to other antibiotic agents; Z88.2 Allergy status to sulfonamides; Z88.8 Allergy status to other drugs, medicaments and biological substances
CPT/HCPCS: 36415; 71046; 80048; 80076; 81003; 85025; 93005; 93010; J0461; J0585; J0690; J1100; J1885; J2250; J2405; J2704; J2765; J3010; J7121

== ENCOUNTER 2023-07-07 10:49 | Day surgery (SDC) | payer MEDICARE, OTHER ==
[2023-07-03 10:38] VITALS: BP 166/91
[~2023-07-07] VITALS: Ht 160 cm; Wt 81.8 kg
[~2023-07-07 10:49] MED LIST changes: +ADVIL PM LIQUI1 EACH PO; +NORVASC2.5 MG PO
[2023-07-07 11:19] VITALS: BP 136/90
[2023-07-07] MEDS ORDERED: NICOTINE1 EAC2 TD (11:27)
[2023-07-07] MEDS ORDERED: VARENICLINE TART1 MG PO (11:29)
--- NOTE | 2023-07-07 13:57 | NUR ---
07/07/23 1357 Kemi Shaw PT TO PACU SLEEPING ORAL AIRWAY IN PLACE O2 VIA MASK, FOGGING NOTED IN MASK.
--- NOTE | 2023-07-07 15:01 | NUR ---
1430 PT CAME TO DAY SURGERY FROM PACU VIA DEVORAH. TOOK REPORT FROM KYLIE CERDA RN. PATIENT AWAKE AND ORIENTED. PT REPORTS NO NAUSEA. IV SITE ASSESSED. VITALS TAKEN. CONTINOUS PLUSE OX LEFT IN PLACE DUE TO PT O2 SAT AROUND 93% ON RA. PT ENCOURAGED TO DEEP BREATHE, PT COMPLETED. 1440 PT GIVEN SNACKS AND WATER. PT TOLERATING WELL. PT HAS CALL LIGHT WITHIN REACH, PT PERSONAL ITEMS WITHIN REACH, PT HAS NO FURTHER QUESTIONS AT THIS TIME.
--- NOTE | 2023-07-07 15:32 | NUR ---
1515 PATIENT AMBULATED TO THE BATHROOM. PATIENT VOIDED 200 MLS OF CLEAR AND YELLOW URINE. PATIENT DRESSED SELF. PATIENT WAITING DISCHARGED. TOOK PERSCRIPTION TO PHARMACY.
[2023-07-07 15:45] VITALS: BP 141/93
--- NOTE | 2023-07-07 16:03 | NUR ---
1440 PT TOLERATED SNACKS AND WATER WELL. VITALS TAKEN. IV REMOVED. DISCHARGE INSTRUCTIONS GIVEN WITH AT BEDSIDE PT HAD NO FURTHER QUESTIONS AT THIS TIME. 1450 PT TAKEN OUT TO HUSBANDS CAR VIA WHEELCHAIR.
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
== END 2023-07-07 15:50 | disposition home or self-care (01) ==
LOC: DS 10:49
PROVIDERS: ATTEND Urology
PROC: 3E0K8GC Introduction of Other Therapeutic Substance into Genitourinary Tract, Via Natural or Artificial Opening Endoscopic (ICD-10-PCS; principal; 2023-07-07 14:10)
DX: N32.81 Overactive bladder (principal); N31.9 Neuromuscular dysfunction of bladder, unspecified; I10 Essential (primary) hypertension; F17.210 Nicotine dependence, cigarettes, uncomplicated
CPT/HCPCS: J0690; J1100; J1885; J2250; J2405; J2704; J2765; J3010; J7121

== ENCOUNTER 2023-11-14 15:57 | Emergency (ER) | payer MEDICARE, OTHER ==
[~2023-11-14] VITALS: Ht 160 cm; Wt 83.7 kg
[~2023-11-14 15:57] MED LIST changes: +NICOTINE1 EAC2 TD; +VARENICLINE TART1 MG PO
--- OUTSIDE RECORDS SUMMARY | 2023-11-14 16:00 | XMS ---
PreManage Notification: EMMA WEINER Security Software Systems Analyst Events No recent Security Events currently on file CRITERIA MET - Group Notification - PDMP CARE PROVIDERS Bernardino August Traffic Sign Erection Supervisor/Adaptive Physical Education Specialist 09/19/2023-Current PHONE: [phone] -[place]- Dentist: [employer] Information Clerk [facility] PHONE: [phone] JENNIFER ARANGO Physician Warp Trucker [facility] PHONE: [phone] Toya Trimble Nurse Practitioner: Family Current STAGING TECHNICIAN PHONE: Unknown [facility] Clinic/Center: [facility] Current WORKERS CLINIC \[facility] (FQ) [facility] PHONE: [phone] Abraham has no Care Guidelines for this patient. Eliud VISIT COUNT (12 MO.) [address] [place] [address] [facility] [place] TOTAL 3 NOTE: Visits indicate total known visits. ED/UCC VISIT TRACKING (12 MO.) 11/14/2023 15:57 [facility] [place] TYPE: Emergency COMPLAINT: - FOOT SWELLING 06/15/2023 14:05 [facility] [place] TYPE: Emergency DIAGNOSES: - Contusion of right ankle, initial encounter - Lumbago with sciatica, right side - Other chronic pain - general 06/14/2023 19:35 [facility] [place] TYPE: Emergency DIAGNOSES: - Low back pain, unspecified - Back Pain INPATIENT VISIT TRACKING (12 MO.) No inpatient visits to display in this time frame [email or web address]
[2023-11-14 18:44] VITALS: BP 128/77
== END 2023-11-14 18:42 | disposition home or self-care (01) ==
LOC: ED 15:57
DX: R60.0 Localized edema (principal); F17.200 Nicotine dependence, unspecified, uncomplicated; Z88.2 Allergy status to sulfonamides; Z91.013 Allergy to seafood; Z88.8 Allergy status to other drugs, medicaments and biological substances; Z79.899 Other long term (current) drug therapy
CPT/HCPCS: 73630; 93971; 99284-25

== ENCOUNTER 2023-12-22 07:25 | Day surgery (SDC) | payer MEDICARE, OTHER ==
[2023-12-17 10:09] VITALS: BP 113/79
[~2023-12-22] VITALS: Ht 160 cm; Wt 80.0 kg
--- NOTE | ~2023-12-22 | EKG ---
[facility] [address] [place], [place] [address] Draft EK completed, results pending confirmation PATIENT NAME: WEINEREMMA Electrocardiogram DATE OF : 66 PHYSICIAN: PRELIMINARY REPORT #: [id number] REPORT IS CONFIDENTIAL AND NOT TO BE RELEASED WITHOUT AUTHORIZATION
[~2023-12-22 07:25] MED LIST changes: +BOTULINUM TOXIN TYPE A 100 UNITS VIAL IM SCH; +CEFAZOLIN SODIUM 2 GM/20 ML SYR IV SCH; +IBLOOD GLUCOSE TEST STRIP 1 EA TEST VI PRN; +LACTATED RINGER'S 1,000 ML IV SCH; +LIDOCAINE HCL 1% 5 ML SDV INJ ONE; +LIDOCAINE HCL 4% 50 ML BTL TOP SCH
[2023-12-22 07:54] VITALS: BP 153/85
[2023-12-22] MEDS ORDERED: ondansetron HCL 4 MG/2 ML VIAL IV PRN ×2 (08:00→10:45)
[2023-12-22] MEDS ORDERED: PHENAZOPYRIDINE HCL 95 MG TAB PO PRN (08:00)
[2023-12-22] MEDS ORDERED: OXYCODONE/APAP 5/325 TAB PO PRN (08:00)
[2023-12-22] MEDS ORDERED: HYDROmorphone HCL 1 MG/ML SYR IV PRN (08:00)
[2023-12-22] MEDS ORDERED: EMGALITY120 MG/1 M SQ (08:02)
[2023-12-22] MEDS ORDERED: NITROFURANTOIN100 MG PO (08:03)
[2023-12-22] MEDS ORDERED: SODIUM CHLORIDE 0.9% 40 ML IV ONE (09:37)
[2023-12-22] MEDS ORDERED: fentaNYL citrate 100 MCG/2 ML VIAL ONE (10:03)
[2023-12-22] MEDS ORDERED: MIDAZOLAM HCL 2 MG/2 ML VIAL ONE (10:03)
[2023-12-22] MEDS ORDERED: DEXAMETHASONE SOD PHOS 4 MG/ML VIAL ONE (10:08)
[2023-12-22] MEDS ORDERED: ondansetron HCL 4 MG/2 ML VIAL ONE (10:08)
[2023-12-22] MEDS ORDERED: propofoL 200 MG/20 ML VIAL ONE (10:08)
[2023-12-22] MEDS ORDERED: LIDOCAINE HCL 2% 5 ML SDV ONE (10:09)
[2023-12-22] MEDS ORDERED: METOCLOPRAMIDE HCL 10 MG/2 ML SDV ONE (10:27)
[2023-12-22] MEDS ORDERED: IBLOOD GLUCOSE TEST STRIP 1 EA TEST VI PRN (10:45)
[2023-12-22] MEDS ORDERED: NALOXONE HCL 0.4 MG SYR IV PRN (10:45)
[2023-12-22] MEDS ORDERED: fentaNYL citrate 50 MCG/ML SDV IV PRN (10:45)
[2023-12-22 11:30] VITALS: BP 133/92
--- NOTE | 2023-12-22 11:30 | NUR ---
PT ARRIVES TO UNIT VIA STRETCHER FROM PACU. PT IS A&O AND REPORTS NO PAIN OR NAUSEA AT THIS TIME. PT PROVIDED APPLESAUCE, CRACKERS, AND ICE WATER. PT REPORTS NO DIFFICULTY SWALLOWING. PT IS SITTING UP IN BED WATCHING TV. CALL LIGHT WITHIN REACH. PT ON RA W/O2 >90%, RESPIRATIONS EVEN AND UNLABORED, NO SIGNS OF DISTRESS AT THIS TIME. PT STATES NO FURTHER NEEDS AT THIS TIME.
--- NOTE | 2023-12-22 11:55 | NUR ---
IN PT ROOM D/T ANSWERED CALL LIGHT. PT REPORTS NEED TO URINE VOID AT THIS TIME. PT SITS AND STANDS AT BEDSIDE W/OUT REPORT OF NAUSEA OR DIZZINESS. PT TO BATHROOM W/1PA BY THIS RN D/T PT USING CANE AT BASELINE, BUT FORGOT IT AT HOME. PT URINE VOID 125 ML OF CLEAR/YELLOW URINE AT THIS TIME. PT BACK TO BED AND GETTING DRESSED AT THIS TIME. CALL LIGHT WITHIN REACH, NO FURTHER NEEDS AT THIS TIME. THIS RN CALLING BOYFRIEND FOR RIDE D/T IT TAKING HIM 30 MIN[address] TO DRIVE TO HERE.
--- NOTE | 2023-12-22 11:58 | NUR ---
12/22/23 1158 Janell Moss 1100- PT ARRIVES TO PACU WITH RALF JONES AND JOSEMANUEL DIAMOND, PT IS SITTING UP IN BED, ATTEMPTING TO PUT LEGS THROUGH SIDE RAILS, SWINGING ARMS AROUND. PT EYES ARE CLOSED. ATTEMPTED TO GET PT TO RESPOND TO STAFF WITHOUT SUCCESS. DUKE JONES AT BEDSIDE WELL. PILLOW PLACED BEISDE RIGHT LEG AND SIDE RAIL, KNEES OF BED ELEVATED, AND REDIRECTION OF EXTREMITIES TO KEEP PT SAFE. PULSE OX PLACED TO ASSESS FOR POTENTIAL REASON OF COMBATIVENESS. 1105- PT CALMS AND LAYS BACK IN BED, BACK TO RESTING AT THIS TIME. VITAL SIGNS DELAYED DUE TO PT BEING COMBATIVE, BUT OBTAINED AT THIS TIME. ALL MONITORS IN PLACE. LR CONTINUES TO INFUSE TO RFA IV. 1115- PT WAKES EASILY TO VERBAL STIMULI, DOES NOT RECALL INITIAL ARRIVAL TO PACU. DENIES PAIN AND NAUSEA. WARM BLANKETS PROVIDED, WILL CONTINUE TO MONITOR. 1130- PT TAKEN BACK TO DAY SURGERY VIA STRETCHER, VITAL SIGNS OBTAINED. BED LOWEST POSITION, SIDE RAILS UP, AND CALL LIGHT IN REACH. PT DROWSY BUT WAKES EASILY TO VERBAL STIMULI, NO COMPLAINTS. WARM BLANKETS PROVIDED. REPORT TO DUKE JONES, CARE OF PT TURNED OVER AT THIS TIME.
--- NOTE | 2023-12-22 12:11 | NUR ---
TOLUIENLaila CALLED AND UPDATED, STATES HE WILL BE HEADING THIS WAY. ADVISED HIM TO PULL AROUND FRONT DOORS AND LET US KNOW WHEN HE ARRIVES.
[2023-12-22 12:44] VITALS: BP 139/87
--- NOTE | 2023-12-22 12:50 | NUR ---
IN PT ROOM FOR DISCHARGE EDUCATION. VS AND IV DC'ED BY MALCOLM JONES. CALLED INTO OR4 AND VERIFIED W/VERENICE GUERRERO FOR PT TO STOP MACROBID ABX AND START TAKING NEW CIPRO ABX PRESCRIPTION PROVIDED. DISCHARGE EDUCATION PROVIDED, PT STATES VERBAL UNDERSTANDING AND STATES NO FURTHER QUESTIONS AT THIS TIME. PT OFF OF UNIT TO PASSENGER SIDE OF BOYFRIEND'S VEHICLE. ALL BELONGINGS IN PT POSSESSION AT THIS TIME.
== END 2023-12-22 12:50 | disposition home or self-care (01) ==
LOC: OPS 07:25 → DS 07:25 → OPS 09:15 → DS 09:30 → OPS 09:30
PROVIDERS: ATTEND Urology
PROC: 3E0K8GC Introduction of Other Therapeutic Substance into Genitourinary Tract, Via Natural or Artificial Opening Endoscopic (ICD-10-PCS; principal; 2023-12-22 09:15)
DX: N31.9 Neuromuscular dysfunction of bladder, unspecified (principal); N32.81 Overactive bladder; G43.909 Migraine, unspecified, not intractable, without status migrainosus; N39.0 Urinary tract infection, site not specified; Z88.2 Allergy status to sulfonamides; Z88.8 Allergy status to other drugs, medicaments and biological substances
CPT/HCPCS: 93005; 93010; J0585; J0690; J1100; J2001; J2250; J2405; J2704; J2765; J3010; J7121

== ENCOUNTER 2024-02-17 07:54 | Emergency (ER) | payer MEDICARE, OTHER ==
[~2024-02-17] VITALS: Ht 160 cm; Wt 80.7 kg
[~2024-02-17 07:54] MED LIST changes: -BOTULINUM TOXIN TYPE A 100 UNITS VIAL IM SCH; -CEFAZOLIN SODIUM 2 GM/20 ML SYR IV SCH; +EMGALITY120 MG/1 M SQ; -IBLOOD GLUCOSE TEST STRIP 1 EA TEST VI PRN; -LACTATED RINGER'S 1,000 ML IV SCH; -LIDOCAINE HCL 1% 5 ML SDV INJ ONE; -LIDOCAINE HCL 4% 50 ML BTL TOP SCH; +NITROFURANTOIN100 MG PO
--- OUTSIDE RECORDS SUMMARY | 2024-02-17 07:55 | XMS ---
PreManage Notification: EMMA WEINER Security Outsole Molder Events No recent Security Events currently on file CRITERIA MET - Group Notification - PDMP CARE PROVIDERS Bernardino August Director Post/Gyroscopic Engineering Technician 01/19/2024-Current PHONE: [phone] -[facility] Dentist: National Van Owner Operator Current [place] PHONE: [phone] -[place]- Dentist: National Van Owner Operator [facility] PHONE: [phone] JENNIFER ARANGO Physician Trimmer Operator [employer] Current [place] PHONE: [phone] Toya Trimble Nurse Practitioner: Family Current SCALE TANK OPERATOR PHONE: Unknown [facility]/Center: [facility] [email or web address] [facility] Current WORKERS CLINIC \[facility] (FQ) [facility] PHONE: [phone] Abraham has no Care Guidelines for this patient. Eliud VISIT COUNT (12 MO.) [address] [facility] TOTAL 4 NOTE: Visits indicate total known visits. ED/UCC VISIT TRACKING (12 MO.) 02/17/2024 07:54 [facility] [place] TYPE: Emergency COMPLAINT: - WEAKNESS 11/14/2023 15:57 [facility] [place] TYPE: Emergency COMPLAINT: - FOOT SWELLING DIAGNOSES: - Allergy status to other drugs, medicaments and biological substances - Allergy status to sulfonamides - Allergy to seafood - Localized edema - Nicotine dependence, unspecified, uncomplicated - Other terminal clerk (current) drug therapy - Other specified soft tissue disorders 06/15/2023 14:05 [facility] [place] TYPE: Emergency DIAGNOSES: - Contusion of right ankle, initial encounter - Lumbago with sciatica, right side - Other chronic pain - general 06/14/2023 19:35 [facility] [place] TYPE: Emergency DIAGNOSES: - Low back pain, unspecified - Back Pain INPATIENT VISIT TRACKING (12 MO.) No inpatient visits to display in this time frame [id number]
[2024-02-17] MEDS ORDERED: ALBUTEROL/IPRATROPIUM 3 ML NEB INH ONE (08:15)
[2024-02-17] MEDS ORDERED: SODIUM CHLORIDE 0.9% 1,000 ML IV PRN (08:15)
[2024-02-17 08:23] LABS: BASOPHILS 0.7 % (0-2); EOSINOPHILS 0.3 % (0-6); HEMATOCRIT 43.9 % (35.0-50.0); HEMOGLOBIN 14.5 g/dL (12.0-18.0); LYMPHOCYTES 16.1 % (24-44); MCH 30.6 (27-36); MCHC 33.1 g/dl (30-36); MCV 92.5 fl (81-99); MONOCYTES 6.7 % (0-12); NEUTROPHILS 76.2 % (39-80); PLATELET COUNT 342 K/uL (140-440); RBC 4.75 M/ul (4.3-5.7); RDW 19.3 (10.5-15.0)
[2024-02-17 08:55] LABS: ACETAMINOPHEN 0 ug/mL (10-30); ALBUMIN 2.6 g/dL (3.4-5.0); ALKALINE PHOSPHATASE 628 U/L (46-116); ALT (SGPT) 339 U/L (14-59); AST (SGOT) 783 U/L (15-37); BILIRUBIN, TOTAL 15.7 ng/dL (0.2-1.0); BUN/CREATININE RATIO 12.87 (6.0-28.6); CALCIUM 9.3 mg/dL (8.5-10.1); CARBON DIOXIDE 27 mmol/L (21-32); CHLORIDE 102 mmol/L (98-107); CREATININE, SERUM 1.32 mg/dL (0.55-1.02); GLOMERULAR FILTRATION RATE,EST 48 mL/min (>60); PROTEIN, TOTAL 6.3 g/dL (6.4-8.2); UREA NITROGEN 17 mg/dL (7-18)
[2024-02-17 09:04] LABS: BILIRUBIN, DIRECT 11.4 mg/dL (0.0-0.2)
[2024-02-17 10:43] LABS: BILIRUBIN, URINE POSITIVE (negative); BLOOD/HGB, URINE LARGE (Negative); KETONE, URINE SMALL (Negative); LEUK ESTERASE, URINE MODERATE (negative); NITRITE, URINE POSITIVE (negative)
[2024-02-17 10:53] LABS: RED BLOOD CELLS, URINE 21-40 /hpf (0-5); WHITE BLOOD CELLS, URINE 21-40 /HPF (0-5)
[2024-02-17 10:54] LABS: BACTERIA, URINE 2+ /hpf (negative); CASTS, URINE NONE SEEN \\lpf; CRYSTALS, URINE NONE SEEN (0-1+); EPITHELIAL CELLS, URINE SQUAMOUS 2+ /lpf (0-1+)
[2024-02-17 10:55] LABS: COLLECTION TYPE, URINE CATH; REFLEX CULTURE, URINE Yes (No)
[2024-02-17] MEDS ORDERED: CEFTRIAXONE/SODIUM CHLORIDE 1 GM/100 ML PIGGYBACK IV ONE (11:15)
[2024-02-17 11:37] LABS: INR 1.29 (0.80-1.30); PROTIME 15.7 Sec (11.2-14.2)
[2024-02-17 11:39] LABS: PARTIAL THROMBOPLASTIN TIME 32.7 Sec (22.9-41.3)
[2024-02-17] MEDS ORDERED: POTASSIUM CHLORIDE 10 MEQ TABCR PO ONE (12:45)
[2024-02-17] MEDS ORDERED: ACETYLCYSTEINE IV ONE ×3 (13:45)
[2024-02-17] MEDS ORDERED: DEXTROSE 5% IV ONE ×3 (13:45)
[2024-02-17 16:12] LABS: INR 1.65 (0.80-1.30); PROTIME 19.1 Sec (11.2-14.2)
[2024-02-17 17:58] LABS: ALBUMIN 2.2 g/dL (3.4-5.0); ALBUMIN/GLOBULIN RATIO 0.63 (1.1-2.4); ANION GAP 19.1 (7-21); BILIRUBIN, TOTAL 13.7 ng/dL (0.2-1.0); BUN/CREATININE RATIO 12.19 (6.0-28.6); CALCIUM 8.4 mg/dL (8.5-10.1); CREATININE, SERUM 1.23 mg/dL (0.55-1.02); POTASSIUM 3.1 mmol/L (3.5-5.1); PROTEIN, TOTAL 5.7 g/dL (6.4-8.2)
[2024-02-17 20:34] VITALS: BP 132/82
--- NOTE | 2024-02-17 21:11 | EKG ---
[facility] [address] [place] [address] Signed Sinus tachycardia Prolonged QT Abnormal ECG When compared with ECG of 22-DEC-2023 07:48, Vent. rate has increased BY 41 BPM Confirmed by Franko Salomon MD () on 02/17/2024 9:11:49 PM Electronically Signed By: FRANKO SALOMON MD 02/17/242110 PATIENT NAME: WEINEREMMA Electrocardiogram DATE OF : 66 PHYSICIAN: FRANKO SALOMON MD REPORT #: [id number] REPORT IS CONFIDENTIAL AND NOT TO BE RELEASED WITHOUT AUTHORIZATION
[2024-02-18 11:24] LABS: HEPATITIS A ANTIBODY, IGM Negative (Negative); HEPATITIS B CORE ANTIBODY, IGM Negative (Negative); HEPATITIS B SURFACE ANTIGEN Negative (Negative); HEPATITIS C AB CIA INTERP Negative (Negative); HEPATITIS C ANTIBODY CIA INDEX 0.12 IV (())
== END 2024-02-17 20:36 | disposition short-term general hospital (02) ==
LOC: ED 07:54
PROVIDERS: Emergency Medicine
DX: R79.89 Other specified abnormal findings of blood chemistry (principal); R79.1 Abnormal coagulation profile; N39.0 Urinary tract infection, site not specified; K76.82 Hepatic encephalopathy; F17.200 Nicotine dependence, unspecified, uncomplicated; Z88.2 Allergy status to sulfonamides; Z88.8 Allergy status to other drugs, medicaments and biological substances; Z88.5 Allergy status to narcotic agent; Z91.013 Allergy to seafood; Z88.1 Allergy status to other antibiotic agents; Z79.899 Other long term (current) drug therapy
CPT/HCPCS: 36415; 70450; 71045; 76705; 80053; 80074; 81001; 82140; 82248; 83605; 83735; 85025; 85610; 85730; 87040; 87077; 87088; 87186; 93005; 93010; 94640; 96361; 96365; 96367; 96376; 99285-25; A9270; G0480; J0132; J0696; J7030; J7060; J7070

== ENCOUNTER 2024-05-03 00:07 | Observation (INO) | payer MEDICARE, OTHER ==
[2024-05-03] VITALS (8 sets, daily range): BP systolic 111–143; BP diastolic 61–75
[~2024-05-03] VITALS: Ht 160 cm; Wt 79.1 kg
--- OUTSIDE RECORDS SUMMARY | ~2024-05-03 | XMS | Continuity of Care Document ---
Demographics + + + | Address | [address] [place] [address] [address] | | | [place] [address] | + + + | Preferred Language | Unknown | + + + | Marital Status | Never | + + + | Roman Catholic Affiliation | Confucianism Saints | + + + | Race | White | + + + | Ethnic Group | Not or | + + + Author + + + | Author | [facility] | + + + | Organization | [facility] | + + + | Address | [address] | | | [place] [address] | + + + | Phone | | + + + Care Team Providers + + + + | Care Countersinker Name | Role | Phone | + + + + Unavailable | Unavailable | + + + + Allergies No information. Encounters No information. Functional Status No information. Immunizations No information. Medications No information. Problems + + + + | date | description | facility | + + + + | 2024-03-05 10:04:37 | Gastric varices | [facility] | + + + + | 2024-03-05 10:04:37 | Gastro-esophageal reflux | [facility] | | | disease with esophagitis, | | | | without bleeding | | + + + + | 2024-03-05 10:04:37 | Unspecified jaundice | [facility] | + + + + Procedures No information. Results/Labs No information. Social History +--------+ + + | date | description | facility | +--------+ + + Vital Signs No information."
--- OUTSIDE RECORDS SUMMARY | ~2024-05-03 | XMS | Continuity of Care Document ---
Demographics + + + | Address | [address] [place] [address] [address] | | | [place] [address] | + + + | Preferred Language | Unknown | + + + | Marital Status | Never | + + + | Pentecostal Affiliation | Sabianism Saints | + + + | Race | White | + + + | Ethnic Group | Not or | + + + Author + + + | Author | [facility] | + + + | Organization | [facility] | + + + | Address | [address] | | | [place] [address] | + + + | Phone | | + + + Care Team Providers + + + + | Care Elevator Repair Mechanic Name | Role | Phone | + [...]
[~2024-05-03 00:07] MED LIST changes: -ADVIL PM LIQUI1 EACH PO; +ADVIL200 MG PO; +BACLOFEN10 MG PO; -BACLOFEN20 MG PO; -FLONASE ALLERG9.9 ML; +FLONASE ALLERG9.9 ML NAS; -REMERON15 M1 PO; +REMERON30 MG PO
--- OUTSIDE RECORDS SUMMARY | 2024-05-03 00:12 | XMS ---
PreManage Notification: EMMA WEINER Security Windows Server Administrator Events No recent Security Events currently on file CRITERIA MET - Group Notification CARE PROVIDERS Bernardino August Applied Mathematician/Schedule Maker 04/20/2024-Current PHONE: [phone] Bernardino August Applied Mathematician/Schedule Maker 02/19/2024-Current PHONE: [phone] -[facility] Dentist: Spindle Carver [facility] [place] PHONE: [phone] -[place]- Dentist: Spindle Carver [facility] PHONE: [phone] JENNIFER ARANGO Physician Design Engineer [employer] Arun [place] PHONE: [phone] GIAN VALERIO Nurse Practitioner: Family Current PHONE: [phone] BENTLEY FINN Nurse Practitioner: Adult Health Current [place] PHONE: [phone] Toya Trimble Nurse Practitioner: Family Current SLOT SUPERVISOR PHONE: Unknown [facility]/Center: [facility] WORKERS [facility] ([facility]) [facility] PHONE: [phone] Abraham has no Care Guidelines for this patient. Eliud VISIT COUNT (12 MO.) 3 [facility] 2 [facility] TOTAL 5 NOTE: Visits indicate total known visits. ED/UCC VISIT TRACKING (12 MO.) 05/03/2024 00:07 [facility] [place] TYPE: Emergency COMPLAINT: - VOMITING 02/17/2024 07:54 [facility] [place] TYPE: Emergency COMPLAINT: - WEAKNESS DIAGNOSES: - Abnormal coagulation profile - Allergy status to narcotic agent - Allergy status to other antibiotic agents - Allergy status to other drugs, medicaments and biological substances - Allergy status to sulfonamides - Allergy to seafood - Hepatic encephalopathy - Nicotine dependence, unspecified, uncomplicated - Other computer terminal operator (current) drug therapy - Other specified abnormal findings of blood chemistry - Urinary tract infection, site not specified - Weakness 11/14/2023 15:57 [facility] [place] TYPE: Emergency COMPLAINT: - FOOT SWELLING DIAGNOSES: - Allergy status to other drugs, medicaments and biological substances - Allergy status to sulfonamides - Allergy to seafood - Localized edema - Nicotine dependence, unspecified, uncomplicated - Other retirement (current) drug therapy - Other specified soft tissue disorders 06/15/2023 14:05 [facility] [place] TYPE: Emergency DIAGNOSES: - Contusion of right ankle, initial encounter - Lumbago with sciatica, right side - Other chronic pain - general 06/14/2023 19:35 [facility] [place] TYPE: Emergency DIAGNOSES: - Low back pain, unspecified - Back Pain INPATIENT VISIT TRACKING (12 MO.) 02/17/2024 23:27 [facility] TYPE: General Medicine COMPLAINT: - Jaundice DIAGNOSES: - Gastric varices - Gastro-esophageal reflux disease with esophagitis, without bleeding - Unspecified jaundice [id number]
[2024-05-03] MEDS ORDERED: LACTATED RINGER'S 1,000 ML IV ONE ×2 (00:30→04:00)
[2024-05-03] MEDS ORDERED: FAMOTIDINE 20 MG/ 2 ML VIAL IV ONE (00:30)
[2024-05-03] MEDS ORDERED: CEFTRIAXONE/SODIUM CHLORIDE 2 GM/100 ML PIGGYBACK IV ONE (00:30)
[2024-05-03 01:06] LABS: BASOPHILS 0.8 % (0-2); EOSINOPHILS 0.9 % (0-6); HEMATOCRIT 34.5 % (35.0-50.0); HEMOGLOBIN 11.6 g/dL (12.0-18.0); LYMPHOCYTES 11.7 % (24-44); MCH 32.2 (27-36); MCHC 33.6 g/dl (30-36); MCV 95.9 fl (81-99); MONOCYTES 10.3 % (0-12); NEUTROPHILS 76.3 % (39-80); PLATELET COUNT 243 K/uL (140-440); RDW 15.1 (10.5-15.0)
[2024-05-03 01:16] LABS: INR 1.08 (0.80-1.30); PROTIME 13.6 Sec (11.2-14.2)
[2024-05-03 01:18] LABS: PARTIAL THROMBOPLASTIN TIME 26.2 Sec (22.9-41.3)
[2024-05-03 01:22] LABS: ALBUMIN 2.7 g/dL (3.4-5.0); ALBUMIN/GLOBULIN RATIO 0.66 (1.1-2.4); ANION GAP 8.2 (7-21); BUN/CREATININE RATIO 8.33 (6.0-28.6); CALCIUM 9.7 mg/dL (8.5-10.1); CREATININE, SERUM 0.96 mg/dL (0.55-1.02); POTASSIUM 3.2 mmol/L (3.5-5.1); PROTEIN, TOTAL 6.8 g/dL (6.4-8.2)
[2024-05-03 01:28] LABS: LACTIC ACID, BLOOD 2.4 mmol/L (0.4-2.0)
[2024-05-03 01:30] LABS: BILIRUBIN, URINE NEGATIVE (negative); BLOOD/HGB, URINE NEGATIVE (Negative); KETONE, URINE NEGATIVE (Negative); LEUK ESTERASE, URINE NEGATIVE (negative); NITRITE, URINE NEGATIVE (negative); PH, URINE 6.5 (5-7)
[2024-05-03 01:37] LABS: INFLUENZA B NAA NEGATIVE (NEGATIVE); RESPIRATORY SYNCYTIAL VIR NAA NEGATIVE (NEGATIVE)
[2024-05-03] MEDS ORDERED: NITROFURANTOIN100 MG PO (02:21)
[2024-05-03] MEDS ORDERED: OXYCODONE HCL5 MG PO (02:22)
[2024-05-03] MEDS ORDERED: PANTOPRAZOLE SO40 MG PO (02:22)
[2024-05-03] MEDS ORDERED: LACTULOSE10 GM/151 PO (02:24)
[2024-05-03] MEDS ORDERED: BACLOFEN10 MG (02:24)
[2024-05-03] MEDS ORDERED: BUPRENORPHIN-N1 EACH PO (02:24)
[2024-05-03] MEDS ORDERED: SUCRALFATE1 GM/10 ML PO (02:25)
[2024-05-03 03:30] LABS: LACTIC ACID, BLOOD 2.2 mmol/L (0.4-2.0)
[2024-05-03] MEDS ORDERED: ondansetron HCL 4 MG/2 ML VIAL IV PRN (04:45)
[2024-05-03] MEDS ORDERED: LACTATED RINGER'S 1,000 ML IV SCH (04:45)
--- NOTE | 2024-05-03 05:50 | NUR ---
REPORT RECEIVED FROM [facility], PT AWAKE, ALERT, TRANSFERED VIA STRETCHER TO ROOM 115 WITH PURSE, CELL PHONE AND CLOTHES.
--- NOTE | 2024-05-03 06:00 | NUR ---
pt ARRIVES TO AR VIA STRETCHER, SBA WITH CANE TO VOID IN BSC. BACK TO BED. VS COMPLETE. pt RATES PAIN 7/10 IN ABDOMEN AND IN BACK. ADMISSION ASSESSMENT COMPLETE. RN REDD IN ROOM ASSESSING pt. ORIENTATION TO ROOM AND CALL LIGHT PROVIDED. WARM BLANKET PROVIDED. pt EDUCATED ON NPO STATUS.
--- NOTE | 2024-05-03 06:29 | NUR ---
PHONE CALL TO , NOTIFIED OF 01/27 ABDOMINAL PAIN WELL CHRONIC BACK PAIN. NO NEW ORDERS RECEIVED VIA TELEPHONE. STATES HE WILL BE IN TO SEE pt.
--- NOTE | 2024-05-03 06:35 | NUR ---
IN ROOM TO LET pt KNOW MD WILL BE IN SOON, pt RESTING IN BED WITH EYES CLOSED, BREATHING UNLABORED, NO DISTRESS NOTED.
--- NOTE | 2024-05-03 07:36 | NUR ---
PT RESTING EYES CLOSED AT TIME OF SHIFT REPORT, LEFT UNDISTURBED. AWAKE NOW SURGEON IS SPEAKING WITH HER.
--- NOTE | 2024-05-03 08:21 | NUR ---
UP DATED THE WHITE BOARD. ASKED PATIENT IF SHE WOULD LIKE TO DO ORAL CARE OR WASH HER FACE AND SHE SAID NOT AT THIS TIME.
[2024-05-03] MEDS ORDERED: FAMOTIDINE 20 MG/ 2 ML VIAL IV SCH (09:00)
--- NOTE | 2024-05-03 09:04 | NUR ---
IV FLUIDS ADJUSTED TO 75ML/H PER DR BRIELLE Holly.O
--- NOTE | 2024-05-03 09:08 | NUR ---
H20 PROVIDED AFTER DOC VISIT PER HIS CLEAR FLUIDS INSTRUCTIONS. PT RESTING NOW EYES CLOSED LEFT UNDISTURBED
[2024-05-03] MEDS ORDERED: POTASSIUM CHLORIDE 10 MEQ/100 ML BAG IV SCH (09:30)
[2024-05-03] MEDS ORDERED: TUMS200 MG PO (09:40)
[2024-05-03] MEDS ORDERED: LIDOCAINE1 EAC1 TOP (09:48)
--- NOTE | 2024-05-03 09:48 | NUR ---
PT CONTINUES RESTING EYES CLOSED AWAKENS TO VOICE FOR ASSESSMENT. C/O IV STINGING NO SIGNS OF INFILTRATION K INFUSION SLOWED. PT AGREES THAT IT'S BETTER. VERBALIZES UNDERSTANDING OF S/S TO REPORT IN CASE OF INFILTRATION.
[2024-05-03] MEDS ORDERED: MELATONIN3 MG PO (09:51)
[2024-05-03] MEDS ORDERED: NARCAN4 MG NAS (09:52)
[2024-05-03] MEDS ORDERED: ONDANSETRON ODT4 MG PO (09:53)
[2024-05-03] MEDS ORDERED: SENNA8.6 MG PO (09:54)
[2024-05-03] MEDS ORDERED: VENTOLIN HFA18 GM INH (09:57)
--- NOTE | 2024-05-03 09:59 | NUR ---
MED REC COMPLETE
--- NOTE | 2024-05-03 10:18 | NUR ---
STARTED NEW IV ON PT FOR IV POTASSIUM NOT BEING TOLERATED IN CURRENT IV. TOLERATED IV START WELL. RUNNING IVF AND K CONCURRENTLY.
--- NOTE | 2024-05-03 10:29 | NUR ---
PT CONTINUED TO HAVE PAIN AT IV SITE. NEW SITE ESTABLISHED POTASSIUM HOOKED TO RIND IN ON IV FLUID AND RATE SLOWED. CONTINUES TO BURN. PHARMACY CONTACTED FOR LIDOCAINE MIX. PT UP TO THE TOILET SBA RETURNS TO REST IN BED. REQUESTS JELLO OR OTHER FOOD ITEMS. PROVIDED PER ORDERS
[2024-05-03] MEDS ORDERED: POTASSIUM CHLORIDE 30 MEQ,LIDOCAINE HCL 1% 30 MG in DEXTROSE 5% 250 ML IV ONE (10:45)
[2024-05-03] MEDS ORDERED: LACTULOSE 20 GM/30 ML CUP PO SCH (11:00)
[2024-05-03] MEDS ORDERED: PANTOPRAZOLE SODIUM 40 MG TABEC PO SCH (11:00)
[2024-05-03] MEDS ORDERED: OXYCODONE HCL 5 MG TAB PO SCH ×2 (11:00→17:00)
[2024-05-03] MEDS ORDERED: SENNOSIDES 1 TAB PO SCH (11:00)
[2024-05-03] MEDS ORDERED: buprenorphine HCL 8 MG TAB.SUBL SL SCH ×2 (11:00→17:00)
--- NOTE | 2024-05-03 11:06 | NUR ---
PAIN MEDS GIVEN REQUESTED NEW K BAG WITH LIDOCAINE INFUSING. JELLO AND JUICE PROVIDED PT RESTING IN BED DENIES FURTHER NEEDS
--- NOTE | 2024-05-03 11:39 | NUR ---
UR CLINICAL REVIEW: 2 MN FOR VERSALUS/MCG-MEETS OBS/INPATIENT CRITERIA FOR ABD PAIN AND NEED FOR IV ABX. MEDICARE OBS 05/03/24 @ 0008 NO AUTH REQUIRED PER MEDICARE GUIDELINES DISCHARGE TO HOME WHEN STABLE 05/04/24
--- NOTE | 2024-05-03 12:33 | NUR ---
PT IS NOT C/O OF ANY DISCOMFORT. BROTH AND JUICE PROVIDED PER REQUEST. PT SITTING UP IN BED WATCHING TV WITH A VISITOR
[2024-05-03] MEDS ORDERED: SUCRALFATE PO SCH (13:00)
--- NOTE | 2024-05-03 13:39 | NUR ---
PT RESTING EYES CLOSED POTASSIUM STILL INFUSING. CALL LIGHT AND FRESH H20 AT BEDSIDE
--- NOTE | 2024-05-03 13:59 | NUR ---
IN TO COMPLETE ASSESSMENT. PATIENT RESTING WITH EYES CLOSED. DOES NOT WAKE TO KNOCK ON DOOR. WILL RETURN TO COMPLETE ASSESSMENT THIS AFTERNOON.
--- NOTE | 2024-05-03 14:19 | NUR ---
PATIENT ALERT AND ORIENTED IN BED. STATES SHE IS CURRENTLY AT [facility] FOR REHAB. NORMALLY LIVES ALONE, IS CURRENTLY TRYING TO FIND SOMEWHERE TO MOVE TO. HAS NO CURRENT ADDRESS. PATIENT HAS A CANE SHE USES AT [place]. STATES SHE CAN DRIVE BUT NO LONGER DOES. STATES SHE USES [facility] FOR APPOINTMENTS. HAS NO FINANCIAL ISSUES. CAN NOT THINK OF ANY NEEDS FOR DC AT THIS TIME.
--- NOTE | 2024-05-03 14:21 | NUR ---
VISITED DURING SPIRITUAL CARE ROUNDS. PT APPEARED TO BE SLEEPING. DID NOT DISTURB. PROVIDED PRAYER.
--- NOTE | 2024-05-03 15:00 | NUR ---
PT RESTING IN BED AWAKENED TO VOICE LACTULOSE ADMINISTERED. SHAVED ICE PROVIDED PT HAS NO C/O PAIN OR NAUSEA. DENIES OTHER NEEDS AT THIS TIME. PT TOLERATING CLEAR LIQUIDS NO C/O NAUSEA ENTIRE SHIFT
--- NOTE | 2024-05-03 15:56 | NUR ---
PHARMACY CONTACTED TO CHANGE PAIN MED TIME ADMINISTRATION TO MORE REFLECT HOME REGIMEN
--- NOTE | 2024-05-03 16:10 | NUR ---
REPORT RECEIVED FROM KAREN MCQUEEN. PT RESTING IN BED, RESPONDS WHEN ADDRESSED. NO NEEDS AT THIS TIME, CALL LIGHT IN REACH.
--- NOTE | 2024-05-03 18:30 | NUR ---
DR. HANNAH NOTIFIED VIA PHONE THAT PT IS REQUESTING, "REAL FOOD." NO NAUSEA OR EMESIS NOTED TODAY. NEW ORDERS RECEIVED FOR DIET AND TO SL.
--- NOTE | 2024-05-03 19:08 | NUR ---
SHIFT REPORT RECEIVED FROM KASEY JONES AND GODWIN JONES, ASSUMING CARE OF PT.
--- NOTE | 2024-05-03 19:21 | NUR ---
WHEN I ANSWERED PATIENT'S CALL LIGHT. PATIENT IN THE BATHROOM. PATIENT WANTED MORE ICE WATER AND A LEMON AND KOBUK SODA.
--- NOTE | 2024-05-03 20:30 | NUR ---
PT AWAKE AND ALERT, VS DONE AND STABLE, ASSESSMENT COMPLETED, SL IN LEFT FA TENDER WITH FLUSH, D'C INTACT, SL IN RIGHT AC PATENT, FLUSHES WELL, ROCEPHIN INFUSING WELL, PT ASSISTED UP TO BR TO VOID, GAIT UNSTEADY, USES A CANE AND 1PA, VOIDED YELLOW AFSHIN URINE, BACK TO BED, RESTING.
[2024-05-03] MEDS ORDERED: TRAZODONE HCL 100 MG TAB PO SCH (21:00)
[2024-05-03] MEDS ORDERED: MIRTAZAPINE 30 MG TAB PO SCH (21:00)
[2024-05-03] MEDS ORDERED: LIDOCAINE PATCH REMOVAL 1 EA TD SCH (21:00)
[2024-05-03] MEDS ORDERED: CEFTRIAXONE/SODIUM CHLORIDE 2 GM/100 ML PIGGYBACK IV SCH (21:00)
[2024-05-03] MEDS ORDERED: MELATONIN 3 MG TAB PO SCH (21:00)
--- NOTE | 2024-05-03 21:10 | NUR ---
ANTIBODIC COMPLETE, SL FLUSHED, SITE INTACT.
--- NOTE | 2024-05-03 23:47 | NUR ---
PT AWAKEN BRIEFLY, CARAFATE GIVEN, PT WITHOUT COMPLAINTS, SL FLUSHES WELL, BACK TO SLEEP.
[2024-05-04] VITALS (7 sets, daily range): BP systolic 139–149; BP diastolic 64–79
--- NOTE | 2024-05-04 01:00 | NUR ---
PT APPEARS TO SLEEP, RESP EVEN AND REG, WITHOUT SIGNS OF DISTRESS.
--- NOTE | 2024-05-04 01:44 | NUR ---
PT UPSET STATES SHE HAS A WET BED, PT INCONTINENT OF LIQUID YELLOW BROWN STOOL, PT ASSISTED UP TO BR WITH CANE AND 1PA, PT TEARFUL AND APOLOGETIC, PT DESIRES SHOWER, RN ASSIST, PT BACK TO BED, CALMER NOW, VS DONE AND STABLE, SODA AND WARM BLANKET GIVEN PER PT REQUEST, PT RESTING, WITHOUT OTHER REQUESTS.
--- NOTE | 2024-05-04 03:30 | NUR ---
PT APPEARS TO SLEEP, RESP EVEN AND REG. WITHOUT SIGNS OF DISTRESS.
--- NOTE | 2024-05-04 04:45 | NUR ---
PT APPEARS TO SLEEP, RESP EVEN AND REG.
[2024-05-04 05:48] LABS: BASOPHILS 1.5 % (0-2); EOSINOPHILS 2.6 % (0-6); HEMATOCRIT 31.9 % (35.0-50.0); HEMOGLOBIN 10.7 g/dL (12.0-18.0); LYMPHOCYTES 38.1 % (24-44); MCHC 33.5 g/dl (30-36); MCV 95.5 fl (81-99); NEUTROPHILS 49.8 % (39-80); PLATELET COUNT 225 K/uL (140-440); RBC 3.34 M/ul (4.3-5.7); RDW 15.1 (10.5-15.0)
[2024-05-04 05:59] LABS: ALBUMIN 2.5 g/dL (3.4-5.0); ALBUMIN/GLOBULIN RATIO 0.61 (1.1-2.4); ANION GAP 11.7 (7-21); BILIRUBIN, TOTAL 1.7 ng/dL (0.2-1.0); BUN/CREATININE RATIO 7.07 (6.0-28.6); CALCIUM 8.9 mg/dL (8.5-10.1); CREATININE, SERUM 0.99 mg/dL (0.55-1.02); POTASSIUM 3.7 mmol/L (3.5-5.1); PROTEIN, TOTAL 6.6 g/dL (6.4-8.2)
--- NOTE | 2024-05-04 06:51 | NUR ---
PT RESTING QUIETLY, VS REVIEWED AND STABLE, PT WITHOUT REQUESTS.
--- NOTE | 2024-05-04 07:30 | NUR ---
REPORT RECEIVED FROM KAREN RAINEY. PT WITH EYES CLOSED, RR EVEN AND UNLABORED IN BED. CALL LIGHT IN REACH. PT CALLS IMMEDIATELY AFTER ROUNDING ON HER, CHARGE NURSE LEONEL ASSISTS PT TO THE BATHROOM, CHANGES BRIEF AND GOWN AND ASISSTS PT BACK TO BED. CALL LIGHT IN REACH.
--- NOTE | 2024-05-04 07:56 | NUR ---
UR CLINICAL REVIEW: 2 MN FOR VERSALUS-MEETS OBS CRITERIA MEDICARE OBS 05/03/24 @ 0008 ORDER MATCHES REG NO AUTH REQUIRED FOR OBS STAYS POSSIBLE DISCHARGE TODAY PENDING AM LAB RESULTS
--- NOTE | 2024-05-04 08:21 | NUR ---
CLINICALS FAXED TO [facility].
--- NOTE | 2024-05-04 08:29 | NUR ---
Patient called for help to the bathroom. Patient is a stand by assist. Patient mentioned not like her breakfeast, other options was given. Patient only agreed to eat the apple sauce. Nurse has been notified.
[2024-05-04] MEDS ORDERED: LIDOCAINE HCL 4% 1 EACH PATCH TD SCH (11:00)
--- NOTE | 2024-05-04 11:29 | NUR ---
VISITED DURING SPIRITUAL CARE ROUNDS. PT APPEARED TO BE SLEEPING. DID NOT DISTURB. PROVIDED PRAYER.
--- NOTE | 2024-05-04 14:20 | NUR ---
PATIENT BEING DISCHARGED BACK TO [facility]. WHEELCHAIR VAN SCHEDULED FOR 1529 TO [facility]. [facility] NOTIFIED AND ORDERS FAXED TO F[facility]ILITY [facility] WITH [facility].
--- NOTE | 2024-05-04 14:37 | NUR ---
IV IS OUT.
--- NOTE | 2024-05-04 15:41 | NUR ---
CALLED [facility] AND GAVE REPORT TO IRINA. ALL QUESTIONS ANSWERED.
== END 2024-05-04 15:30 | disposition home or self-care (01) ==
LOC: ED 00:07 → MS 00:08
PROVIDERS: Internal Medicine; ADMIT Transplant Surgery; ATTEND Transplant Surgery
DX: R10.11 Right upper quadrant pain (principal); R11.2 Nausea with vomiting, unspecified; K74.60 Unspecified cirrhosis of liver; G43.909 Migraine, unspecified, not intractable, without status migrainosus; F17.200 Nicotine dependence, unspecified, uncomplicated; E66.9 Obesity, unspecified; Z68.31 Body mass index [BMI] 31.0-31.9, adult; Z79.899 Other long term (current) drug therapy; Z88.2 Allergy status to sulfonamides; Z88.8 Allergy status to other drugs, medicaments and biological substances; Z91.013 Allergy to seafood; Z88.1 Allergy status to other antibiotic agents; Z90.49 Acquired absence of other specified parts of digestive tract
CPT/HCPCS: 36415; 51701; 71045; 76705; 80053; 81003; 83605; 84484; 85025; 85610; 85730; 87040; 87502; 96375; 96376; 99285-25; A9270; G0378; J0696; J3480; J3490; J7060; J7121; U0002